=== PATIENT | male | born 1995 ===

== ENCOUNTER 2024-03-23 17:51 | Inpatient (IN) | payer OTHER ==
[~2024-03-23] VITALS: Ht 190.5 cm; Wt 65.5 kg
[2024-03-23] MEDS ORDERED: LORazepam 1 MG Tab PO PRN (20:55)
[2024-03-23] MEDS ORDERED: Haloperidol 5 MG Tab PO PRN ×2 (20:55→21:35)
[2024-03-23] MEDS ORDERED: DiphenhydrAMINE HCl 50 MG Cap PO PRN ×2 (21:00→21:05)
[2024-03-23] MEDS ORDERED: LORazepam 2 MG Tab PO PRN (21:05)
[2024-03-23] MEDS ORDERED: Aluminum Hydroxide 320MG/5ML 473 ML PO PRN (21:05)
[2024-03-23] MEDS ORDERED: LORazepam 2 MG/ML 1ML Injection IM PRN (21:05)
[2024-03-23] MEDS ORDERED: Calcium Carbonate 500 MG Tab Chew PO PRN (21:05)
[2024-03-23] MEDS ORDERED: TraZODone HCl 50 MG Tab PO PRN (21:10)
[2024-03-23] MEDS ORDERED: OLANZapine ODT 10 MG Tab MM PRN (21:10)
[2024-03-23] MEDS ORDERED: Ondansetron 4 MG SoluTab MM PRN (21:10)
[2024-03-23] MEDS ORDERED: Polyethylene Glycol 3350 17 gm PO PRN (21:10)
[2024-03-23] MEDS ORDERED: TraZODone HCl 100 MG Tab PO PRN (21:15)
[2024-03-23] MEDS ORDERED: DiphenhydrAMINE HCl 50 MG/ML 1ML Vial IV PRN (21:30)
[2024-03-23] MEDS ORDERED: FLU VACC TS2024-25(6MOS UP)/PF 45 MCG/0.5 ML SYRINGE IM SCH (21:30)
[2024-03-23] MEDS ORDERED: OLANZapine 10 MG Tab PO SCH (21:30)
[2024-03-23] MEDS ORDERED: Acetaminophen 325 MG TABLET PO PRN (21:30)
[2024-03-23] MEDS ORDERED: HydrOXYzine Pamoate 50 MG Cap PO PRN (21:35)
[2024-03-23] MEDS ORDERED: Haloperidol Lactate Inj. 5 MG/ML Injection IM PRN (21:35)
[2024-03-23] MEDS ORDERED: Ibuprofen 600 MG Tab PO PRN (21:35)
[2024-03-23] MEDS ORDERED: Melatonin 3 MG Tab PO PRN (21:35)
--- NOTE | 2024-03-23 22:02 | NUR ---
PATIENT ARRIVED ON [facility] FROM [facility] AT 2034. HE WAS QUIET AND LOOKING DOWN. HE DID ENGAGE WITH RN AND STATED HIS NAME. HE REACHED INTO HIS WAISTBAND AND HANDED RN A KNIFE, STATING THAT HE "FEELS SAFE" WHILE HE IS HERE. KNIFE WAS LOCKED UP. PATIENT WAS COOPERATIVE WITH SKIN ASSESSMENT AND ADMISSION PROCESS. HE STATED THAT HE WAS HUNGRY AND ATE A SANDWICH AND A MACARONI AND CHEESE. HE WENT TO BED IMMEDIATELY AFTER ADMISSION. HE WAS GIVEN ZYPREXA AND TRAZODONE. HE WAS COMPLIANT WITH MEDICATIONS. CONTINUING TO MONITOR FOR SAFETY AND COMFORT WITH Q15 MINUTE CHECKS.
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
[2024-03-24] MEDS ORDERED: Multivitamins 1 Tab PO SCH (09:00)
[2024-03-24 09:09] VITALS: BP 118/76
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
[2024-03-24 22:23] VITALS: BP 118/78
--- NOTE | 2024-03-25 04:30 | NUR ---
PATIENT WAS IN BED AT THE BEGINNING OF THE SHIFT. HE CAME TO THE DINING ROOM FOR 2000 SNACKS, AND ATE 100%. HE WAS SOCIAL WITH STAFF AND PEERS. HE WAS PLEASANT AND COOPERATIVE WITH CARES. HE WAS MEDICATION COMPLIANT. HE HAD NO ISSUES OR CONCERNS. HE HAD NO S/SX SUICIDAL IDEATION OR SELF HARM THIS SHIFT. HE SPENT MOST OF THE SHIFT IN BED WHERE HE WAS NOTED TO BE RESTING QUIETLY WITH EYES CLOSED AND RESPIRATIONS CONFIRMED. CONTINUING TO MONITOR FOR SAFETY WITH Q15 MINUTE CHECKS.
[2024-03-25 08:25] VITALS: BP 108/66
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
[2024-03-25] MEDS ORDERED: Nicotine 21 MG PATCH TOP ONE (17:40)
[2024-03-25 21:12] VITALS: BP 108/65
--- NOTE | 2024-03-26 04:16 | NUR ---
PATIENT WAS IN BED AT THE BEGINNING OF THE SHIFT. HE WAS APPARENTLY SLEEPING BUT WAS EASILY ROUSED FOR MEDICATIONS. HE DECLINED OFFER OF SNACK AT 1999, STATING THAT "I'M TOO SLEEPY". HE WAS PLEASANT AND COOPERATIVE WITH CARES. HE WAS COMPLIANT WITH MEDICATIONS. HE REMAINED IN BED RESTING WITH EYES CLOSED AND RESPIRATIONS CONFIRMED FOR MOST OF THE SHIFT. HE HAD NO S/SX SUICIDAL IDEATION OR SELF HARM THIS SHIFT. CONTINUING TO MONITOR FOR SAFETY WITH Q15 MINUTE CHECKS.
[2024-03-26 08:04] VITALS: BP 113/71
[2024-03-26] MEDS ORDERED: Nicotine 21 MG PATCH TOP SCH (09:00)
--- NOTE | 2024-03-26 12:48 | NUR ---
COMPLETED ONLINE APPLICATION WITH PT FOR TWO [facility] IN HIS PREFERRED LOCATION PER REQUEST, CONTACT GIVEN FOR BOTH UNIT AND THE PT CELL PHONE. PT STATES HE FEELS BETTER AND IS CATCHING UP ON SLEEP. PT STATES VOICES ARE MORE DISTANT AND QUIET, PT REPORTS DESIRE TO TAKE MEDICATIONS AFTER HE LEAVES, STATES HE USES [facility] [place]. PT ALSO REQUESTS NICOTINE PATCH, THOUGH IS UNSURE IF HE IS READY TO QUIT SMOKING JUST YET. PT STATES HE FEELS READY TO DISCHARGE, DISCUSSED HIS VEHICLE BEING AT THE HOSPITAL IN [place], PT STATES HIS INSURANCE HAS COVERED TRANSPORTATION SERVICES IN THE PAST. PT ALSO REQUESTED DENTAL HYGIENE VISIT WHILE HERE, ORDER PLACED FOR SAME.
--- NOTE | 2024-03-26 13:31 | NUR ---
PT A/O X4. IS IN AN ANGRY MOOD. DID NOT FINISH INTERVIEW, " GET OUT OF MY ROOM". DENIES TO BE SI,HI, BUT HAS AUDITORY HALLUCINATIONS FEELS THERE ARE 2 PEOPLE AFTER HIM. PT DID STATE THAT HE HAD A PLAN IF HE WAS SI." I WOULD TAKE A KNIFE AND INTENTIONALLY HURT MYSELF." HE DID NOT ELBORATE ON DETAILS. PT DID NOT GO TO GROUPS "I DON'T WANT TOO." MED PASS PT DID NOT WANT TO COME TO THE DOOR TO TAKE HIS MEDS. TOLD ME TO TAKE THEM TO HIM, I EXPLAINED THE PROGRAM OF THINGS HE IS TO DO WHILE HE IS HERE. HE FINALLY CAME TO THE DOOR AND TOOK THEM. TRIED TO INTERVIEW PT, BUT HE TOLD ME TO LEAVE HIS ROOM AND HE DIDN'T WANT TO TALK.. STATED " I'M TIRED AND WANT TO SLEEP" LEFT THE DOORWAY OF HIS ROOM WITHOUT FINISHING INTERVIEW. WILL CONTINUE TO MONITOR.
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
[2024-03-26 23:33] VITALS: BP 122/69
--- NOTE | 2024-03-27 03:04 | NUR ---
SHIFT SUMMARY PT IN BED AT THE BEGINNING OF SHIFT. HE AWAKES EASILY AND DENIES ANY SI, HI AND ANY HALLUCINATIONS. PT WAS COOPERATIVE, AND COMPLIANT WITH MEDICATIONS. HE DECLINED AN EVENING SNACK AND STAYED IN HIS BED THROUGHOUT THE NIGHT. HE APPEARS TO BE SLEEPING WELL, RESPIRATIONS EVEN AND UNLABORED. Q15 MINUTE CHECKS TO CONTINUE BY STAFF PER UNIT PROTOCOL.
[2024-03-27 08:09] VITALS: BP 114/81
--- NOTE | 2024-03-27 11:18 | NUR ---
PT PENDING DISCHARGE. CALL PLACED TO PREFERRED PHARMACY, [facility]. SPOKE WITH PHARMACIST, BERTRAND AND DISCHARGE RX CALLED IN.
--- NOTE | 2024-03-27 11:32 | NUR ---
PT DENIED SI, HI AND AVH, HE REPORTED HIGH ANXIETY AND PAIN TO BOTH LEGS BUT DIDN'T ELABORATE. HE APPEARS TO BE IRRITABLE THIS MORNING AND REFUSES TO PARTICIPATE IN GROUPS OR ANSWER MANY QUESTIONS. HE DECLINED TO PARTICIPATE IN HIS SAFETY PLAN. HE HAS SPENT THE MORNING IN BED.
[2024-03-27] MEDS ORDERED: OLAN20 MM (11:43)
--- NOTE | 2024-03-27 13:13 | NUR ---
PT WAS DISCHARGED AT 13:00 WITH ALL OF HIS POSSESSIONS, DISCHARGE INSTRUCTIONS EXPLAINED AND PRINTED COPIES GIVEN TO HIM, HE SIGNED THEM. HE IS BEING TRANSPORTED TO HIS CAR IN [place].
== END 2024-03-27 13:00 | disposition home or self-care (01) | DRG 897 ==
LOC: BHU 17:51
PROVIDERS: ADMIT Psychiatry & Neurology Psychiatry
DX: F19.259 Other psychoactive substance dependence with psychoactive substance-induced psychotic disorder, unspecified (principal); Z59.00 Homelessness unspecified; F15.20 Other stimulant dependence, uncomplicated; F20.9 Schizophrenia, unspecified; Z79.899 Other long term (current) drug therapy; F17.210 Nicotine dependence, cigarettes, uncomplicated; Z88.8 Allergy status to other drugs, medicaments and biological substances; F12.90 Cannabis use, unspecified, uncomplicated
CPT/HCPCS: A9270